=== PATIENT | male | born 1960 | race African-American/Black ===

== ENCOUNTER 2016-04-16 07:45 | Day surgery (SDC) | payer OTHER ==
[2016-04-13 15:51] VITALS: BMI 31.6
[2016-04-16] MEDS ORDERED: PROPOFOL 20 ML ONE ×2 (08:01)
[2016-04-16] MEDS ORDERED: LIDOCAINE HCL/PF 2% SDV 5ML VIAL ONE (08:02)
[2016-04-16 08:34] VITALS: TEMP 98.6
[2016-04-16 09:49] VITALS: PULSE 68
[2016-04-16 10:09] VITALS: BP 126/79
== END 2016-04-16 10:30 | disposition home or self-care (01) ==
LOC: FASU-ENDO 07:45
PROVIDERS: ATTEND Internal Medicine Gastroenterology
PROC: 0DJD8ZZ Inspection of Lower Intestinal Tract, Via Natural or Artificial Opening Endoscopic (ICD-10-PCS; principal; 2016-04-16 09:18)
DX: Z12.11 Encounter for screening for malignant neoplasm of colon (principal)